=== PATIENT | female | born 1995 | race Caucasian/White ===

== ENCOUNTER 2019-09-10 22:49 | Emergency (ER) | payer SELFPAY ==
[~2019-09-10] VITALS: Ht 154.9 cm; Wt 79.4 kg
[2019-09-10 22:52] VITALS: BP 132/73
--- NOTE | 2019-09-10 23:09 | NUR ---
24 Y/O FEMALE C/O LOWER ABDOMINAL PAIN, SINCE AM ACCOMPANIED WITH NAUSEA. 8/10 SHARP, CRAMPING PAIN. NO TENDERNESS NOTED. BURNING AND PAIN ON URINATION. PT ALERT, ORIENTED AND CALM, SITTING UP IN BED. RESPIRATIONS EVEN AND UNLABORED. LUNG SOUNDS CLEAR. BOWEL SOUNDS ACTIVE. MED HX: CHILDHOOD ASTHMA AT 12 Y/O. ALLERGIES: NKA
[2019-09-10] MEDS ORDERED: NACL 0.9% 1,000 ML IV ONE (23:26)
[2019-09-10] MEDS ORDERED: ONDANSETRON 4 MG/2 ML VIAL IVP ONE (23:30)
[2019-09-10 23:38] LABS: APPEARANCE,URINE CLOUDY (CLEAR); BILIRUBIN,URINE NEGATIVE (NEGATIVE); BLOOD, URINE 3+ (NEGATIVE); COLOR,URINE YELLOW (YELLOW); LEUKOCYTE ESTERASE ,URINE 2+ (NEGATIVE); NITRITE, URINE POSITIVE (NEGATIVE); UGLUCOSE NEGATIVE (NEGATIVE)
[2019-09-10 23:38] LABS: BASOPHILS # (AUTO) 0.1 K/uL (0.00-0.22); BASOPHILS % (AUTO) 0.6 % (0.0-2.0); EOSINOPHILS % (AUTO) 0.1 % (0.0-4.0); HEMATOCRIT 35.7 % (36-48); HEMOGLOBIN 11.8 g/dL (12.0-16.0); LYMPHOCYTES # (AUTO) 1.8 K/uL (2.5-16.5); LYMPHOCYTES % (AUTO) 10.9 % (20.5-51.1); MEAN CORPUSCULAR HEMOGLOBIN 27 pg (27-31); MEAN CORPUSCULAR HGB CONC 33 g/dL (33-37); MEAN CORPUSCULAR VOLUME 82.3 fL (80-94); MONOCYTES # (AUTO) 0.6 K/uL (0.8-1.0); MONOCYTES % (AUTO) 3.4 % (1.7-9.3); NEUTROPHILS # (AUTO) 14.5 K/uL (1.8-7.7); PLATELET COUNT (AUTO) 290 K/uL (140-450); RED BLOOD CELL COUNT(AUTO) 4.33 MIL/uL (4.20-5.40); RED CELL DISTRIBUTION WIDTH 14.3 % (11.6-13.7)
[2019-09-10 23:57] LABS: ALBUMIN 3.8 g/dL (3.4-5.0); ANION GAP 14.4 (8-16); CARBON DIOXIDE 21.4 mmol/L (21-32); CREATININE 0.6 mg/dL (0.6-1.3); POTASSIUM 3.8 mmol/L (3.5-5.1); TOTAL BILIRUBIN 0.4 mg/dL (0.0-1.0)
[2019-09-11 00:20] LABS: RBC,URINE TOO NUMEROUS TO COUN /HPF (0-5); WBC,URINE TOO MANY TO COUNT /HPF (0-5)
--- NOTE | 2019-09-11 00:30 | NUR ---
PATIENT ALERT AND AWAKE, BREATHING EVEN AND UNLABORED
--- NOTE | 2019-09-11 01:47 | NUR ---
PATIENT ALERT AND AWAKE, BREATHING EVEN AND UNLABORED
[2019-09-11] MEDS ORDERED: ACETAMINOPHEN EXTRA STRENGTH 500 MG TAB PO ONE (02:40)
--- NOTE | 2019-09-11 02:40 | NUR ---
PATIENT ALERT AND AWAKE, BREATHING EVEN AND UNLABORED
[2019-09-11] MEDS ORDERED: cefTRIAXone 1,000 MG VIAL ONE (02:56)
[2019-09-11 04:00] VITALS: BP 119/72
--- NOTE | 2019-09-11 04:00 | NUR ---
Patient discharged with v/s stable. Written and verbal after care instructions ABOUT 1ST TRIMESTER, URINARY TRACT INFECTIONS given and explained. Patient alert, oriented and verbalized understanding of instructions. Ambulatory with steady gait. All questions addressed prior to discharge. ID band removed. Patient advised to follow up with PMD. Rx of KEFLEX, [facility] MULTI + DHA SOFTGEL, AND ACTEMINOPHEN 500MG given. Patient educated on indication of medication including possible reaction and side effects. Opportunity to ask questions provided and answered.
== END 2019-09-11 04:00 | disposition home or self-care (01) ==
LOC: MED 22:49
DX: O23.41 Unspecified infection of urinary tract in pregnancy, first trimester (principal); J45.909 Unspecified asthma, uncomplicated
CPT/HCPCS: 36415; 76817; 80053; 81001; 81025; 83690; 84702; 85025; 86140; 86900; 86901; 87086; 87186; 96361; 96365; 99284; J0696; J2405; J7030; Q0092